=== PATIENT | female | born 1960 | race Caucasian/White ===

== ENCOUNTER 2016-09-27 11:19 | Inpatient (IN) | payer MEDICARE, OTHER ==
[~2016-09-27] VITALS: Ht 165.1 cm; Wt 205.5 kg
--- NOTE | ~2016-09-27 | EKG ---
PATIENT: FRANCISCO JAVIER MCGARRY UNIT #: [id number] Ventricular Rate: 116 BPM Atrial Rate: 127 BPM QRS Duration: 104 ms Q-T Interval: 282 ms QTC Calculation(Bezet): 391 ms Calculated T [place]: 172 degrees Diagnosis Line: Atrial fibrillation with rapid ventricular Diagnosis Line: response Diagnosis Line: Marked ST abnormality, possible lateral Diagnosis Line: subendocardial injury Diagnosis Line: Abnormal ECG Diagnosis Line: When compared with ECG of 22-MAR-2016 12:06, Diagnosis Line: T wave inversion more evident in Anterolateral Diagnosis Line: leads Diagnosis Line: Confirmed by ZULEIKA ARRIETA MD ([id number]) on 09/29/2016 Diagnosis Line: 6:13:35 PM INTERPRETING MD: BERNY SMITH
--- NOTE | ~2016-09-27 | EKG ---
PATIENT: FRANCISCO JAVIER MCGARRY UNIT #: [id number] Ventricular Rate: 69 BPM Atrial Rate: 60 BPM QRS Duration: 96 ms Q-T Interval: 426 ms QTC Calculation(Bezet): 456 ms Calculated R [place]: 14 degrees Calculated T [place]: 130 degrees Diagnosis Line: Atrial fibrillation Diagnosis Line: ST and T wave abnormality, consider anterolateral Diagnosis Line: ischemia or digitalis effect Diagnosis Line: Abnormal ECG Diagnosis Line: When compared with ECG of 27-SEP-2016 11:28, Diagnosis Line: (unconfirmed) Diagnosis Line: Vent. rate has decreased BY 47 BPM Diagnosis Line: T wave inversion less evident in Lateral leads Diagnosis Line: Confirmed by ZULEIKA ARRIETA MD ([id number]) on 09/29/2016 Diagnosis Line: 7:32:15 PM INTERPRETING MD: BERNY SMITH
--- NOTE | ~2016-09-27 | CR72 ---
[facility] A Service of [facility] RADIOLOGY TEXT RESULTS PATIENT: FRANCISCO JAVIER MCGARRY LOCATION: [place] [address] : [birth year] UNIT #: [id number] AGE: [address]: Winter Swift MD SEX: F ORDER DR: [id number] [facility] [address] [place], [place] [address] [id number] I MR#: [id number] Acc #: [id number] NAME: FRANCISCO JAVIER MCGARRY : 1960 SEX: F STUDY DATE/TIME: 09/27/2016 12:31 UNIT: CEDOF ROOM: [id number] STUDY DESCRIPTION: CR Chest Single View Portable Attending Physician: Winter Swift M.D. Ordering Physician: Alda Robertson M.D. Primary Care Physician: Vandana Duffy M.D. MEDICAL IMAGING REPORT This report is preliminary unless electronic signature is present EXAM Portable chest 09/27/2016 HISTORY 56-year-old female with shortness of air and chest pain beginning this morning. COMPARISONS Chest 03/22/2016 FINDINGS Frontal chest demonstrates clear lungs. No pleural effusion or pneumothorax. Mild cardiomegaly is stable. Mediastinum and pulmonary vasculature are unremarkable. IMPRESSION Stable cardiomegaly. No other acute chest findings. Dictated by... Álvaro Benites M.D. THIS IS AN ELECTRONICALLY VERIFIED REPORT Álvaro Benites M.D. at 09/28/2016 5:06 PM VIRGIL/heidy TD: 09/27/2016 21:50 JOB #: [id number] MEDICAL IMAGING REPORT Page 1 of 1 COPY
--- NOTE | ~2016-09-27 | BMI ---
[facility] Nutrition Therapy DATE: 09/28/16 Patient: FRANCISCO JAVIER MCGARRY Physician: ATTPRE [facility] [address] [facility] Room/Bed: [address] [place] [address], Zip: [place] [address] Admit Date: 09/27/16 Date of : [birth year] Height: 5 5 Weight: 453 205.5 HIGH BMI NOTE: DX: 56 Y.O. FEMALE ADMITTED FOR AFIB W/RVR ANTHROPOMETRICS: 5'5", WT: 453# (206 KG), BMI: 75.4 DIET: HH + FLUID RESTRICTION RECOMMENDATIONS: 1. RECOMMEND TO ADD 2000 KCAL RESTRICTION + CC TO CURRENT DIET ORDER ABOVE TO PROMOTE GRADUAL WEIGHT LOSS TOWARDS HEALTHY (19.0-25.0) OR +/-10%IBW RD WILL F/U PER PROTOCOL Respectfully, PAUL PARADA MS, RD, LD Food and Nutritional Services [facility] cc: client file
--- NOTE | ~2016-09-27 | HP ---
Unit #: [id number] #: [id number] Patient: FRANCISCO JAVIER MCGARRY [id number] [facility]. [place] [address] [facility]. [place], [place] [address] [id number] I MR#: [id number] NAME: FRANCISCO JAVIER MCGARRY. ROOM: [id number] Age: 56 Sex: F Admission Date: 09/27/2016 : 1960 Attending Physician: Winter Swift M.D. Primary Care Physician: Vandana Duffy M.D. HISTORY AND PHYSICAL HISTORY OF PRESENT ILLNESS This is a 56-year-old white female who has been seen by our group in the past who has a history of nonobstructive coronary artery disease per cardiac catheterization in 2012. She is known to have nonischemic cardiomyopathy with an ejection fraction of 40% to 45%. She has chronic systolic and diastolic heart failure, hypertension, and COPD. The patient comes to the emergency room with the complaint of palpitations and chest pain. She states she awakened this morning with substernal chest tightness and palpitations. She felt that she was in atrial fibrillation. In the emergency room, electrocardiogram showed atrial fibrillation with rapid ventricular response, rate of 116 beats per minute. She was started on amiodarone drip in the emergency room. She has been on long-term anticoagulation with Eliquis because of known paroxysmal atrial fibrillation in the past. She has had no cardiac testing since her cardiac catheterization in 2012. She has failed to follow up with Cardiology. BNP 32. Troponin negative. There is no heart failure noted on chest x-ray. PAST MEDICAL HISTORY 1. A 2D echocardiogram in February 2016 showed an ejection fraction of 40% to 45% with mild aortic regurgitation and mild tricuspid regurgitation. Right ventricular systolic pressure 40 mmHg. 2. Cardiac catheterization in June 2012 showed left main, circumflex, ramus, and right coronary arteries normal, LAD first diagonal branch with 40% to 50% stenosis, 2+ aortic regurgitation, and ejection fraction of 40% to 45%. 3. Chronic systolic/diastolic heart failure. 4. Nonischemic cardiomyopathy. 5. Paroxysmal atrial fibrillation on anticoagulation with Eliquis. Has a history of direct current cardioversion at [facility] two to three years ago. 6. Hypertension. 7. Chronic obstructive pulmonary disease. 8. Obstructive sleep apnea. 9. Hypothyroidism. 10. Gastroesophageal reflux disease. 11. Asthma. 12. Obesity. PAST SURGICAL HISTORY 1. Carpal tunnel release. 2. Cholecystectomy. Unit #: [id number] #: [id number] Patient: FRANCISCO JAVIER MCGARRY SOCIAL HISTORY The patient is . She quit smoking 11 years ago. She denies a history of alcohol or illicit drug use. FAMILY HISTORY Positive for heart disease in her mother, father, and brother. Her brother at age 35 from questionable heart disease. ALLERGIES Penicillin. HOME MEDICATIONS 1. Combivent mini-nebs q.i.d. 2. Singulair 10 mg daily. 3. Carvedilol 6.25 mg b.i.d. 4. Altace 5 mg daily. 5. Lanoxin 125 mcg daily. 6. Eliquis 5 mg daily. 7. Vitamin B12 at 1000 mcg daily. 8. Levothyroxine 175 mcg daily. 9. Paxil 40 mg daily. 10. Protonix 40 mg daily. REVIEW OF SYSTEMS CONSTITUTIONAL: Negative for fever or chills. Has recent weight loss. HEENT: No headache, hearing or visual changes, or difficulty with swallowing. No dizziness. CARDIOVASCULAR: Has chest pain as described in the HPI. Positive for palpitations. No paroxysmal nocturnal dyspnea or orthopnea. No syncope or near syncope. RESPIRATORY: Negative for dyspnea, cough, or hemoptysis. GASTROINTESTINAL: Reports recent nausea and diarrhea. No constipation or melena. EXTREMITIES: Has occasional lower extremity edema. PHYSICAL EXAMINATION VITAL SIGNS: Blood pressure 117/73, heart rate 95, and temperature 98.1. BMI 75. GENERAL: This is a morbidly obese, 56-year-old white female who is in no acute distress. NEUROLOGIC: She is awake, alert, and oriented. There are no focal weaknesses. NECK: Trachea is midline. No thyromegaly or lymphadenopathy. No jugular venous distention. HEART: S1 and S2 heart sounds are normal. No murmurs, rubs, or clicks. Irregularly irregular rhythm. LUNGS: With diminished breath sounds both lungs, without rales, rhonchi, or wheezes. ABDOMEN: Soft and nontender with bowel sounds present. EXTREMITIES: Without leg edema. SKIN: Warm and dry. DIAGNOSTIC STUDIES LABORATORY: Glucose 122, BUN 21, creatinine 1, sodium 139, and potassium 3.7. BNP 32. Troponin less than 0.05 x2. White count 6.5, hemoglobin 12.5, hematocrit 38.7, and platelet count is 118,000. IMAGING: Chest x-ray shows no active disease. Unit #: [id number] #: [id number] Patient: FRANCISCO JAVIER MCGARRY CARDIOLOGY: EKG shows atrial fibrillation with rapid ventricular response, rate of 116 beats per minute, with nonspecific ST wave abnormality. IMPRESSION 1. Atrial fibrillation with rapid ventricular response. 2. Nonischemic cardiomyopathy with reduced ejection fraction of 40% to 45%. 3. Chronic systolic/diastolic heart failure. 4. Hypertension. 5. Chronic obstructive pulmonary disease. 6. History of hypothyroidism. 7. Morbid obesity. PLAN 1. The patient has been started on amiodarone drip. Will discontinue amiodarone after the present bag. 2. TSH and lipid profile will be obtained. 3. Repeat EKG. 4. Will start the patient on oral Cardizem for heart rate control. 5. Repeat cardiac enzymes and troponin. Doubt chest pain is ischemic in origin. 6. If the patient has converted to normal sinus rhythm in the a.m., will discharge home. 1. Dictated by Brenda MillsPShelby for Ramila Simmons TD: 09/27/2016 18:50 JOB #: [id number] HISTORY AND PHYSICAL Page 1 of 1 X Enoch Causey APRN HISTORY AND PHYSICAL
[~2016-09-27 11:19] MED LIST: ADVAIR 250-501 EAC1 IH; ADVAIR 2501 DISK W/D; ADVAIR DISKU1 250/50 INH; ALBUTEROL 0.5ML INH; ALBUTEROL MININEB NEB; ALBUTEROL17 GM; ALLEGRA; ASPIRIN; ASPIRIN325 M1 PO; ASPIRIN81 MG PO; CARAFATE; CARDIZEM CD120 M1 PO; CARVEDILOL6.25 MG PO; COMBIVENT INH14.7 G1 IH; COMBIVENT INH14.7 GM; COMBIVENT MININEB; COMBIVENT MININEB INH; COMBIVENT U/D3 M2 INH; COREG12.5 MG PO; COUMADIN7.5 MG PO; DYAZIDE 37.5/251 CAP; ELIQUIS2.5 MG PO; ELIQUIS5 MG PO; FOLIC ACID PO; HYDRALAZINE HCL50 MG PO; ISORDIL10 MG PO; K-DUR20 ME2 PO; KCL; LASIX; LASIX PO; LASIX20 MG PO; LEVAQUIN; MOBIC; MONTELUKAST SOD10 MG PO; NASONEX17 GM; NEXIUM; NEXIUM PO; PAROXETINE HCL40 MG PO; PAXIL; PAXIL40 MG PO; PREDNISONE; PREDNISONE PO; PROTONIX; SINGULAIR PO; SYMBICORT INH; SYNTHROID0.1 MG PO; SYNTHROID137 MCG PO; SYNTHROID175 MCG PO; VICODIN 5/1 TAB 5/50 PO; VITAMIN B122500 MCG PO; ZESTRIL5 MG PO
[2016-09-27 12:23] LABS: BASOPHIL# 0.1 X10e3 (0-0.3); BASOPHIL% 0.9 % (0-2.5); DIFF IND NO; EOSINOPHIL# 0.2 X10e3 (0-0.7); EOSINOPHIL% 2.5 % (0.0-7.0); HEMATOCRIT 38.7 % (35.0-45.0); HEMOGLOBIN 12.5 gm/dL (12.0-16.0); LYMPHOCYTE# 0.7 X10e3 (1.0-3.5); LYMPHOCYTE% 10.2 % (17.0-45.0); MEAN CELL VOLUME 85.2 FL (83-96); MEAN CORPUSCULAR HEMOGLOBIN 27.5 PG (28-34); MEAN CORPUSCULAR HGB CONC 32.3 g/dL (30-36); MONOCYTE# 0.5 X10e3 (0-1.0); MONOCYTE% 7.6 % (3.0-12.0); NEUTROPHIL# 5.1 X10e3 (1.5-7.1); NEUTROPHIL% 78.8 % (40-75); PLATELET COUNT 118 X10e3 (140-420); RED BLOOD COUNT 4.55 X10e (3.90-5.30); RED CELL DISTRIBUTION WIDTH 15.5 % (11.0-15.5); WHITE BLOOD COUNT 6.5 X10e3 (4.0-10.5)
[2016-09-27 12:36] LABS: INR 1.1; PARTIAL THROMBOPLASTIN TIME 27.2 SECONDS (23.5-31.3); PROTHROMBIN TIME (PATIENT) 11.8 SECONDS (10.0-11.7)
[2016-09-27 12:54] LABS: ALBUMIN SERUM 4.5 g/dL (3.5-5.0); BILIRUBIN, DIRECT 0.2 mg/dL (0.0-0.2); BILIRUBIN,INDIRECT 0.7 mg/dL (0.0-0.9); BILIRUBIN,TOTAL 0.9 mg/dL (0.2-2.0); CALCIUM SERUM 8.9 mg/dL (8.4-10.2); GLOM FILT RATE Estimated 63.8 mL/min (>60); POTASSIUM 3.7 mmol/L (3.5-5.1)
[2016-09-27 13:09] LABS: POC - CKMB <1.0 ng/mL (0.0-7.9); POC - TROPONIN <0.05 ng/mL (<=0.05)
[2016-09-27 14:38] LABS: POC - CKMB <1.0 ng/mL (0.0-7.9); POC - TROPONIN <0.05 ng/mL (<=0.05)
[2016-09-27] MEDS ORDERED: SINGULAIR PO (14:42)
[2016-09-27] MEDS ORDERED: IPRATR-ALBUTEROL3 ML NEB (14:42)
[2016-09-27] MEDS ORDERED: PATIENT'S PHARMACY (14:42)
[2016-09-27] MEDS ORDERED: LANOXIN125 MCG PO (14:42)
[2016-09-27] MEDS ORDERED: COREG6.25 M1 PO (14:42)
[2016-09-27] MEDS ORDERED: ALTACE PO (14:42)
[2016-09-27] MEDS ORDERED: CYANOCOBALAM1000 MCG PO (14:43)
[2016-09-27] MEDS ORDERED: LEVOXYL175 MCG PO (14:43)
[2016-09-27] MEDS ORDERED: PROTONIX PO (14:43)
[2016-09-27] MEDS ORDERED: PAXIL PO (14:43)
[2016-09-27] MEDS ORDERED: ELIQUIS5 MG PO (14:43)
[2016-09-27 20:46] LABS: %MB 0.7 % (0.0-4.0); MB 0.8 ng/ml
[2016-09-28 03:41] LABS: %MB 0.9 % (0.0-4.0); MB 0.9 ng/ml
[2016-09-28 03:43] LABS: CALCIUM SERUM 8.8 mg/dL (8.4-10.2); GLOM FILT RATE Estimated 63.8 mL/min (>60); POTASSIUM 3.8 mmol/L (3.5-5.1)
[2016-09-28] MEDS ORDERED: LASIX PO (10:50)
[2016-09-28] MEDS ORDERED: COMBIVENT U/D3 M2 INH (10:55)
[2016-09-28] MEDS ORDERED: CARDIZEM60 MG PO (11:23)
== END 2016-09-28 15:51 | disposition home or self-care (01) | DRG 309 ==
LOC: CED 11:19 → CEDOF 17:37 → C5B 23:36 → CEDOF 23:36 → C5B 23:48
PROVIDERS: Emergency Medicine; Internal Medicine Cardiovascular Disease
DX: I48.0 Paroxysmal atrial fibrillation (principal); I50.42 Chronic combined systolic (congestive) and diastolic (congestive) heart failure; I11.0 Hypertensive heart disease with heart failure; I42.8 Other cardiomyopathies; Z79.01 Long term (current) use of anticoagulants; I25.10 Atherosclerotic heart disease of native coronary artery without angina pectoris; J44.9 Chronic obstructive pulmonary disease, unspecified; G47.33 Obstructive sleep apnea (adult) (pediatric); E03.9 Hypothyroidism, unspecified; K21.9 Gastro-esophageal reflux disease without esophagitis; J45.909 Unspecified asthma, uncomplicated; E66.01 Morbid (severe) obesity due to excess calories; Z90.49 Acquired absence of other specified parts of digestive tract; Z87.891 Personal history of nicotine dependence; Z82.49 Family history of ischemic heart disease and other diseases of the circulatory system; Z88.0 Allergy status to penicillin
CPT/HCPCS: 36415; 71010; 80048; 80061; 80076; 82550; 82553; 83880; 84443; 84484; 85025; 85610; 85730; 93005; 94640; 96365; 96366; 96376; 99285; J0282

== ENCOUNTER 2016-10-10 18:07 | Inpatient (IN) | payer MEDICARE, OTHER ==
[~2016-10-10] VITALS: Ht 165.1 cm; Wt 193.1 kg
--- NOTE | ~2016-10-10 | DS ---
Unit #: [id number] #: [id number] Patient: FRANCISCO JAVIER MCGARRY [id number] [address] [place], [place] [address] [id number] I MR#: [id number] NAME: FRANCISCO JAVIER MCGARRY ROOM: [facility] Age: 56 Sex: F Admission Date: 10/11/2016 : 1960 Discharge Date: 10/13/2016 Attending Physician: Petey Zimmerman M.D. Primary Care Physician: Vandana Duffy M.D. DISCHARGE SUMMARY DISCHARGE DIAGNOSES 1. Acute bronchitis. 2. Acute exacerbation of asthma. 3. History of paroxysmal atrial fibrillation. 4. Congestive heart failure. 5. Hypertension. 6. Obstructive sleep apnea. 7. Obesity. 8. Hypothyroidism. DISCHARGE MEDICATIONS 1. Robitussin 5-10 mL p.o. q.6 hours p.r.n. for cough. 2. Zithromax 250 mg p.o. daily for 4 more days. 3. Prednisone 20 mg daily for 10 days. 4. Patient is to continue home Combivent inhaler q.4 hours, DuoNeb inhaler q.i.d., Eliquis 5 mg b.i.d., Paxil 40 mg daily, Coreg 6.25 mg b.i.d., Symbicort 160 at 2 puffs b.i.d., Lanoxin 125 mcg p.o. daily, Cardizem 60 mg b.i.d., Lasix 40 mg daily as needed for fluid retention, Altace 5 mg daily, Singulair 10 mg daily, Protonix 40 mg daily, levothyroxine 175 mcg daily, and vitamin B12 at [address]cg [address] daily. CONS[address] Abundio Montoya, Pulmonary. LABS, DIAGNOSTICS, AND PROCEDURES 1. Chest x-ray with no acute findings. 2. Neck x-ray unremarkable. HISTORY OF PRESENT HOSPITAL STAY Please refer to H and P done by my colleague for initial presentation on this female. ACTIVE PROBLEMS DIAGNOSED Acute bronchitis was treated with antibiotics. Continue Zithromax for four more days per Dr. Montoya. Status post acute exacerbation of asthma was treated with IV steroids and bronchodilators. Currently stable per Dr. Montoya's recommendations to be discharged on p.o. steroids. History of paroxysmal atrial fibrillation. Continue rate control with Coreg and chronic anticoagulation with Eliquis. Unit #: [id number] #: [id number] Patient: FRANCISCO JAVIER MCGARRY Congestive heart failure. Continue home medications. See discharge medication reconciliation as above. Continue Lanoxin and Coreg. Hypertension, stable. Obstructive sleep apnea. Follow up with Dr. Montoya. Hypothyroidism. Continue replacement per discharge medications as above. DISPOSITION Going home. FOLLOWUP With primary care physician in two or three days and Pulmonary as an outpatient. Dictated by... Petey Zimmerman M.D. OC/am TD: 10/13/2016 21:41 JOB #: [id number] DISCHARGE SUMMARY Page 1 of 1 X Petey Zimmerman MD X DISCHARGE SUMMARY
--- NOTE | ~2016-10-10 | CR72 ---
[facility] Service of [facility] RADIOLOGY TEXT RESULTS PATIENT: FRANCISCO JAVIER MCGARRY LOCATION: [facility] [id number] : [birth year] UNIT #: [id number] AGE: [address]: Petey Zimmerman MD SEX: F ORDER DR: [id number] [facility] [address] [place], [place] [address] [id number] I MR#: [id number] Acc #: [id number] NAME: FRANCISCO JAVIER MCGARRY. : 1960 SEX: F STUDY DATE/TIME: 10/10/2016 19:10 UNIT: [facility] ROOM: [facility] STUDY DESCRIPTION: CR Chest Single View Portable Attending Physician: Petey Zimmerman M.D. Ordering Physician: Sharath Mace D.O. Primary Care Physician: Vandana Duffy M.D. MEDICAL IMAGING REPORT This report is preliminary unless electronic signature is present EXAM Portable chest HISTORY Shortness of air for 3 weeks. FINDINGS Moderate cardiac enlargement is accentuated by low lung volumes. Pulmonary vascularity is normal. No airspace infiltrates or effusions. IMPRESSION No acute findings. Moderate cardiac enlargement. Dictated by... Radames Jerry M.D. THIS IS AN ELECTRONICALLY VERIFIED REPORT Radames Jerry M.D. at 10/11/2016 11:17 PM ANT/ashley TD: 10/11/2016 17:26 JOB #: [id number] MEDICAL IMAGING REPORT Page 1 of 1 COPY
--- NOTE | ~2016-10-10 | BMI ---
[facility] Nutrition Therapy DATE: 10/11/16 Patient: FRANCISCO JAVIER Gallagher ZEFERINO Physician: BRAN Address: [address] [place] [address] Room/Bed: [address] [place] [address], Zip: [place] [address] Admit Date: 10/11/16 Date of : [birth year] Height: 5 5 Weight: 426 193.5 HIGH BMI NOTE: ANTHROPOMETRICS: HT: 65" WT: 193.5 KG BMI: 71 DIET: HEART HEALTHY/ CONSISTENT CARBOHYDRATE RECOMMENDATIONS: 1. CONTINUE CURRENT DIET TO PROMOTE GRADUAL WEIGHT LOSS. Respectfully, MICHAEL BRYAN RD, LD Food and Nutritional Services [facility] cc: client file
--- NOTE | ~2016-10-10 | CR195 ---
[facility] A Service of [facility] RADIOLOGY TEXT RESULTS PATIENT: FRANCISCO JAVIER MCGARRY LOCATION: [facility] [id number] : [birth year] UNIT #: [id number] AGE: [address]: Petey Zimmerman MD SEX: F ORDER DR: [id number] [facility] [address] [place], [place] [address] [id number] I MR#: [id number] Acc #: [id number] NAME: FRANCISCO JAVIER MCGARRY : 1960 SEX: F STUDY DATE/TIME: 10/10/2016 19:12 UNIT: [facility] ROOM: [facility] STUDY DESCRIPTION: CR Neck Soft Tissue Attending Physician: Petey Zimmerman M.D. Ordering Physician: Sharath Mace D.O. Primary Care Physician: Vandana Duffy M.D. MEDICAL IMAGING REPORT This report is preliminary unless electronic signature is present EXAM Soft tissue neck AP and lateral HISTORY Sore throat for 3 weeks. No injury. FINDINGS AP and lateral soft tissue views of the neck demonstrate no precervical soft tissue swelling or airway narrowing or displacement. Mild degenerative and hypertrophic changes at C5-6. IMPRESSION No acute findings. No airway narrowing or displacement. Dictated by... Radames Jerry M.D. THIS IS AN ELECTRONICALLY VERIFIED REPORT Radames Jerry M.D. at 10/11/2016 11:17 PM DFL/mike TD: 10/11/2016 09:18 JOB #: [id number] MEDICAL IMAGING REPORT Page 1 of 1 COPY
--- NOTE | ~2016-10-10 | HP ---
Unit #: [id number] #: [id number] Patient: FRANCISCO JAVIER NOEL [id number] [address] [place], [place] [address] [id number] I MR#: [id number] NAME: FRANCISCO JAVIER NOEL ROOM: [facility] Age: 56 Sex: F Admission Date: 10/11/2016 : 1960 Attending Physician: Petey Zimmerman M.D. Primary Care Physician: Vandana Duffy M.D. HISTORY AND PHYSICAL CHIEF COMPLAINT Chest pain. HISTORY OF PRESENT ILLNESS Ms. Francisco Javire Noel is a 56-year-old female who is very well known to me from multiple admissions and from office setting. The patient's last admission was on September 27, 2016 for uncontrolled atrial fibrillation. She was doing well until yesterday when she started having chest pain, shortness of breath, cough and congestion. The patient also complained of chest tightness. There was no radiation of the pain to the left upper extremity. No radiation of the pain to the neck. The patient did take some antibiotic and steroid as an outpatient but did not get better. The patient does not complain of chest pain today. Severity of the cough was moderate. The patient is complaining of some sputum production, also. No blood in the sputum. She complains of shortness of breath, mostly exertional. She does not complain of orthopnea. No complaint of paroxysmal nocturnal dyspnea. She does not complain of any fever, chills or rigors. PAST MEDICAL HISTORY 1. History of coronary artery disease. 2. Chronic systolic/diastolic congestive heart failure. 3. Ejection fraction of 40% to 45%. 4. Nonischemic cardiomyopathy. 5. Paroxysmal atrial fibrillation. 6. Anticoagulation therapy for above. 7. Hypertension. 8. Hyperlipidemia. 9. Obstructive sleep apnea. 10. COPD/asthma. 11. Hypothyroidism. 12. Gastroesophageal reflux disease. 13. Asthma. 14. Obesity. SOCIAL HISTORY The patient is . She has a past history of smoking, but she quit 11 years ago. No history of alcohol abuse or drug abuse. FAMILY HISTORY Positive for coronary artery disease. Brother at the age of 35 with possible heart disease. ALLERGIES Unit #: [id number] #: [id number] Patient: FRANCISCO JAVIER NOEL Penicillin. PAST SURGICAL HISTORY 1. History of cholecystectomy. 2. History of carpal tunnel syndrome. 3. History of cardiac cath. HOME MEDICATIONS 1. Ipratropium and albuterol nebulizer treatment q.i.d. 2. Singulair 10 mg daily. 3. Coreg 6.25 mg b.i.d. 4. Altace 5 mg daily. 5. Lanoxin 125 mcg daily. 6. Eliquis 5 mg b.i.d. 7. Cyanocobalamin 1,000 mcg daily. 8. Levoxyl 175 mcg d. 9. Paxil 40 mg daily. 10. Protonix 40 mg daily. 11. Lasix 40 mg daily. 12. Combivent q.6 hours. 13. Cardizem 60 mg b.i.d. PHYSICAL EXAMINATION GENERAL: The patient is being evaluated in room 555. VITAL SIGNS: Vital signs are stable with blood pressure of 131/49, respiratory rate 16, pulse 90, temperature 97.6, oxygen saturation 97%. HEENT: Head is normocephalic. Eye movements are normal. NECK: Neck is supple. RESPIRATORY: Chest has fair air entry. Few wheezes heard. CVS: S1, S2 positive. Regular rhythm. ABDOMEN: Obese. EXTREMITIES: Trace edema. HAND WASHER: The patient is awake, alert and oriented x3. No focal neurologic deficits. DIAGNOSTIC STUDIES LAB WORKUP: WBC 4.6, hemoglobin 11.7, hematocrit 35.8, platelet count 143. Troponin is less than 0.05. PT 11.4, INR 1.1. Sodium 137, potassium 3.7, chloride 101, BUN 20, creatinine 0.9. Liver enzymes are normal. BNP is 35. Strep throat screen is negative. Digoxin is 0.6. D-dimer is 321, which is within normal range. IMAGING: Soft tissue x-ray was done, which shows no acute findings. No airway narrowing or displacement. ASSESSMENT 1. The patient is being admitted to telemetry unit with chest pain; 2. Acute bronchitis; 3. Asthma/COPD exacerbation; 4. History of paroxysmal atrial fibrillation, controlled rate; 5. History of congestive heart failure, which is compensated; 6. Hypertension; 7. Obstructive sleep apnea; 8. Moderate obesity; 9. Hypothyroidism. PLAN The patient is being admitted to telemetry unit. IV Solu-Medrol 40 mg q.8 Unit #: [id number] #: [id number] Patient: FRANCISCO JAVIER NOEL A is being started. Bumex 1 mg IV push 1 dose will be given. Home medications will be continued. Dr. Swift will be consulted. Dr. Montoya will be consulted. Please refer to progress note for further orders. Plan of care has been discussed with the patient at length. Dictated by Ramila Owusu TD: 10/11/2016 11:45 JOB #: [id number] HISTORY AND PHYSICAL Page 1 of 1 X Vandana Duffy MD X HISTORY AND PHYSICAL
--- NOTE | ~2016-10-10 | EKG ---
PATIENT: FRANCISCO JAVIER MCGARRY UNIT #: [id number] Ventricular Rate: 75 BPM Atrial Rate: 250 BPM QRS Duration: 106 ms Q-T Interval: 400 ms QTC Calculation(Bezet): 446 ms Calculated R [place]: 3 degrees Calculated T [place]: 96 degrees Diagnosis Line: Atrial fibrillation Diagnosis Line: ST and T wave abnormality, consider anterolateral Diagnosis Line: ischemia Diagnosis Line: Abnormal ECG Diagnosis Line: When compared with ECG of 28-SEP-2016 05:40, Diagnosis Line: No significant change was found Diagnosis Line: Confirmed by ZULEIKA ARRIETA MD ([id number]) on 10/11/2016 Diagnosis Line: 6:24:18 PM INTERPRETING MD: BERNY SMITH
--- NOTE | ~2016-10-10 | CO ---
Unit #: [id number] #: [id number] Patient: FRANCISCO JAVIER NOEL [id number] [address] [place], [place] [address] [id number] MR#: [id number] NAME: FRANCISCO JAVIER NOEL ROOM: [facility] Age: 56 Sex: F Admission Date: 10/11/2016 : 1960 Attending Physician: Petey Zimmerman M.D. Primary Care Physician: Vandana Duffy M.D. Consultation Date: 10/11/2016 CONSULTATION REPORT REASON FOR CONSULTATION Shortness of breath. HISTORY OF PRESENT ILLNESS The patient is a 56-year-old female with obstructive sleep apnea, intolerant to CPAP, asthma/COPD, presents with chest tightness. She had Strep throat about two weeks ago and has noticed an increased use of her nebulizer. She uses it six or eight times a day. She will get a chest tightness and it usually responds to her nebulizer; however, the day prior to admission it did not. She denied sputum production but she did have some wheezing. There was no fever. In the emergency room, she was found to have atrial fibrillation with rapid ventricular response. Chest x-ray showed no active disease. She received steroids in the hospital but they were not continued. Apparently, her Symbicort was stopped or at least not continued accidentally after rehab. PAST MEDICAL HISTORY Remarkable for: 1. Sleep apnea. 2. Intolerant to CPAP. 3. History of COPD/asthma, off inhaled steroids. 4. Wheezing, chest tightness, likely secondary to airway inflammation. 5. Atrial fibrillation with rapid ventricular response. 6. Left ventricular dysfunction with an EF of 40W%. 7. Obstructive sleep apnea. 8. Hypertension. 9. Hypothyroidism. 10. Morbid obesity. MEDICATIONS Medications at home - she is on: 1. A nebulizer that she uses six to eight times a day, as above, on no inhaled controlling agents. 2. She is on Singulair. 3. Coreg. 4. Altace. 5. Lanoxin. 6. Eliquis. 7. Levoxyl. 8. Paxil. 9. Protonix. 10. Lasix. 11. Cardizem. Unit #: [id number] #: [id number] Patient: FRANCISCO JAVIER NOLE ALLERGIES Penicillin, unknown reaction. SOCIAL HISTORY Quit smoking ten years ago. FAMILY HISTORY Coronary artery disease. REVIEW OF SYSTEMS No fever. She does generally sleep during the day. She is up at night. Will sleep during the day because that is her 's sleep schedule. She denies any chest pain or wheezing currently. No abdominal pain, melena, hematochezia, hematuria, dysuria, focal weakness, paresthesias. She does have some leg edema. Further review of systems negative. PHYSICAL EXAMINATION GENERAL: Reveals a patient who is comfortable in bed, on 3 L which she is on at home. VITAL SIGNS: She is afebrile. Pulse is 90, respiratory rate 16, blood pressure 131/49. She is 5 ft 5 in, 426 pounds. BMI is 70. HEENT: Pupils equal, round, reactive to light. Sclerae anicteric. Head atraumatic. NECK: Supple. No supraclavicular or cervical adenopathy appreciated but please note her morbid obesity decreases sensitivity and specificity of exam. CHEST: Equal breath sounds. No wheeze, stridor or consolidation noted. CARDIAC EXAMINATION: Distant heart tones. No definite murmur, rub or gallop. It appears she is still in atrial fibrillation. ABDOMEN: Soft, nontender. No hepatomegaly or rebound. EXTREMITIES: Edema, lymphedema. No calf tenderness. No clubbing. SKIN: Chronic brawny induration changes bilaterally. No acute rash. NEUROLOGICAL: Grossly intact with no focal muscle or sensory deficits noted. DIAGNOSTIC STUDIES LABORATORY: BUN is 19, creatinine is 0.9. BNP is 35. TSH September 28 1.4, Cardiac enzymes negative. White blood cell count 4.6, hemoglobin 11.9, platelet count 135. Strep screen negative. IMAGING: Chest x-ray - no acute disease. Cardiomegaly. IMPRESSION 1. Atrial fibrillation with rapid ventricular response. 2. Asthma/COPD in exacerbation. 3. Chronic respiratory, on 3 L, appears stable. She is asking for re-evaluation of some type of portable concentrator. 4. Morbid obesity. 5. Obstructive sleep apnea, noncompliant. 6. Left ventricular dysfunction with an EF of 40%. 7. Edema, suspect cor pulmonale. 8. Hypertension, hypothyroidism, etc. Unit #: [id number] #: [id number] Patient: FRANCISCO JAVIER NOEL A PLAN She will need re-evaluation of her sleep apnea. I suspect that that is contributing to many of her problems including left ventricular dysfunction, edema and atrial fibrillation. She is a daytime sleeper and I discussed with her sleep schedule and we can accommodate that by doing a day study. Pulse steroids - restart her inhaled steroids/long acting beta agonist. She is unclear why it was stopped, there were no problems encountered. Certainly weight loss is vitally important as well as compliance with office followup. We will continue her oxygen at 3 L and re-evaluate for portable oxygen concentrator at the office. Thank you very much for allowing me to participate in the care of Ms. Noel. Dictated by... Abundio Montoya M.D. ANATOLIY/jorge TD: 10/11/2016 11:50 JOB #: [id number] CONSULTATION REPORT Page 1 of 1 X Abundio Montoya MD X CONSULTATION REPORT
[~2016-10-10 18:07] MED LIST changes: +ALTACE PO; +CARDIZEM60 MG PO; +COREG6.25 M1 PO; +CYANOCOBALAM1000 MCG PO; +IPRATR-ALBUTEROL3 ML NEB; +LANOXIN125 MCG PO; +LEVOXYL175 MCG PO; +PATIENT'S PHARMACY; +PAXIL PO; +PROTONIX PO
[2016-10-10 20:18] LABS: EOSINOPHIL# 0.1 X10e3 (0-0.7); EOSINOPHIL% 3.1 % (0.0-7.0); HEMATOCRIT 35.8 % (35.0-45.0); HEMOGLOBIN 11.7 gm/dL (12.0-16.0); LYMPHOCYTE# 0.5 X10e3 (1.0-3.5); LYMPHOCYTE% 11.8 % (17.0-45.0); MEAN CELL VOLUME 84.4 FL (83-96); MEAN CORPUSCULAR HEMOGLOBIN 27.5 PG (28-34); MEAN CORPUSCULAR HGB CONC 32.6 g/dL (30-36); MONOCYTE# 0.4 X10e3 (0-1.0); MONOCYTE% 9.1 % (3.0-12.0); NEUTROPHIL# 3.4 X10e3 (1.5-7.1); PLATELET COUNT 143 X10e3 (140-420); RED BLOOD COUNT 4.24 X10e (3.90-5.30); RED CELL DISTRIBUTION WIDTH 15.3 % (11.0-15.5); WHITE BLOOD COUNT 4.6 X10e3 (4.0-10.5)
[2016-10-10 20:21] LABS: DIFF IND NO
[2016-10-10 20:25] LABS: POC - CKMB <1.0 ng/mL (0.0-7.9); POC - TROPONIN <0.05 ng/mL (<=0.05)
[2016-10-10 20:35] LABS: INR 1.1; PARTIAL THROMBOPLASTIN TIME 24.1 SECONDS (23.5-31.3); PROTHROMBIN TIME (PATIENT) 11.4 SECONDS (10.0-11.7)
[2016-10-10 20:39] LABS: ALBUMIN SERUM 3.9 g/dL (3.5-5.0); BILIRUBIN, DIRECT 0.2 mg/dL (0.0-0.2); BILIRUBIN,TOTAL 1.2 mg/dL (0.2-2.0); BUN/CREATININE RATIO 22.22; CALCIUM SERUM 8.9 mg/dL (8.4-10.2); CREATININE SERUM 0.9 mg/dL (0.6-1.4); GLOM FILT RATE Estimated 72.5 mL/min (>60); POTASSIUM 3.7 mmol/L (3.5-5.1); PROTEIN TOTAL SERUM 6.8 g/dL (6.0-8.3)
[2016-10-11 00:19] LABS: POC - CKMB <1.0 ng/mL (0.0-7.9); POC - TROPONIN <0.05 ng/mL (<=0.05)
[2016-10-11 06:57] LABS: HEMATOCRIT 36.4 % (35.0-45.0); HEMOGLOBIN 11.9 gm/dL (12.0-16.0); MEAN CELL VOLUME 84.9 FL (83-96); MEAN CORPUSCULAR HEMOGLOBIN 27.7 PG (28-34); MEAN CORPUSCULAR HGB CONC 32.6 g/dL (30-36); MEAN PLATELET VOLUME 10.3 FL (6.5-11.5); RED BLOOD COUNT 4.28 X10e (3.90-5.30); RED CELL DISTRIBUTION WIDTH 15.5 % (11.0-15.5); WHITE BLOOD COUNT 4.6 X10e3 (4.0-10.5)
[2016-10-11 07:30] LABS: BUN/CREATININE RATIO 21.11; CALCIUM SERUM 9.1 mg/dL (8.4-10.2); CREATININE SERUM 0.9 mg/dL (0.6-1.4); GLOM FILT RATE Estimated 72.5 mL/min (>60)
[2016-10-11 13:05] LABS: CK TOTAL 50 IU/L (26-140)
[2016-10-13] MEDS ORDERED: PREDNISONE PO (19:38)
[2016-10-13] MEDS ORDERED: ZITHROMAX PO (19:39)
[2016-10-13] MEDS ORDERED: SYMBICORT INH (19:39)
[2016-10-13] MEDS ORDERED: ROBITUSSIN A-C S5 ML PO (19:40)
== END 2016-10-13 20:15 | disposition home or self-care (01) | DRG 191 ==
LOC: CED 18:07 → CEDOF 10-11 01:00 → CED 10-11 01:35 → CEDOF 10-11 01:35 → C5B 10-11 03:41 → CEDOF 10-11 03:41 → C5B 10-13 20:15
PROVIDERS: Emergency Medicine; Hospitalist
DX: J44.1 Chronic obstructive pulmonary disease with (acute) exacerbation (principal); J96.10 Chronic respiratory failure, unspecified whether with hypoxia or hypercapnia; I27.81 Cor pulmonale (chronic); Z68.45 Body mass index [BMI] 70 or greater, adult; I11.0 Hypertensive heart disease with heart failure; I50.42 Chronic combined systolic (congestive) and diastolic (congestive) heart failure; E66.01 Morbid (severe) obesity due to excess calories; I48.0 Paroxysmal atrial fibrillation; J44.0 Chronic obstructive pulmonary disease with (acute) lower respiratory infection; J20.9 Acute bronchitis, unspecified; Z79.01 Long term (current) use of anticoagulants; Z87.891 Personal history of nicotine dependence; G47.33 Obstructive sleep apnea (adult) (pediatric); E03.9 Hypothyroidism, unspecified; E78.5 Hyperlipidemia, unspecified; Z91.19 Patient's noncompliance with other medical treatment and regimen; Z88.0 Allergy status to penicillin; Z90.49 Acquired absence of other specified parts of digestive tract; Z82.49 Family history of ischemic heart disease and other diseases of the circulatory system
CPT/HCPCS: 70360; 71010; 80048; 80076; 80162; 82550; 82553; 83880; 84484; 85025; 85027; 85379; 85610; 85730; 87651; 93005; 94640; 94664; 94760; 99285; J0456; J2920; J2930